=== PATIENT | female | born 1960 | race Caucasian/White ===

== ENCOUNTER 2021-02-19 04:07 | Inpatient (IN) | payer OTHER ==
[2021-02-19] MEDS ORDERED: Aspirin Chewable 81 MG TAB ONE (04:48)
[2021-02-19] MEDS ORDERED: Ondansetron PF 4 MG/2 ML Vial IVP PRN (06:15)
[2021-02-19] MEDS ORDERED: Acetaminophen 325 MG TAB PO PRN (06:15)
[2021-02-19] MEDS ORDERED: Ondansetron ODT 4 MG TAB SL PRN (06:15)
[2021-02-19 06:45] VITALS: BMI 28.9
[2021-02-19] MEDS ORDERED: Labetalol HCl 100 MG/20 ML VIAL SLOW IVP PRN (08:36)
[2021-02-19] MEDS ORDERED: hydrALAZINE 20 MG/ML VIAL SLOW IVP PRN (08:36)
[2021-02-19 09:29] LABS: Hemoglobin 10.1 g/dL (12.0-16.0); Mean Corpuscular HGB CONC 34.6 g/dL (32.0-36.0); Mean Corpuscular Hemoglobin 32.5 pg (27.0-31.0); RBC Distribution Width 16.8 % (11.5-14.5)
[2021-02-19 09:42] LABS: Hemoglobin A1c 5.5 % (4.0-6.0)
[2021-02-19 09:47] LABS: ALT (SGPT) 30 U/L (8-55); AST (SGOT) 36 U/L (5-34); Albumin 3.3 g/dL (3.5-5.0); Alkaline Phosphatase 113 U/L (40-110); Anion Gap 12 mmol/L (10-20); BUN (Urea Nitrogen) 8 mg/dL (9.8-20.1); Bilirubin, Total 0.8 mg/dL (0.2-1.2); Calc. Creatinine Clearance 135 mL/min (70-130); Calcium 8.6 mg/dL (7.8-10.44); Carbon Dioxide 27 mmol/L (22-29); Chloride 100 mmol/L (98-107); Globulin 2.9 g/dL (2.4-3.5); Glucose 142 mg/dL (70-105); Potassium 4.1 mmol/L (3.5-5.1); Protein, Total 6.2 g/dL (6.0-8.3); Sodium 135 mmol/L (136-145)
[2021-02-19 09:52] LABS: #Lymphocytes 1.1 thou/uL (1.20-3.40); #Neutrophils 7.8 thou/uL (1.40-6.50); %Basophils 0.1 % (0.0-1.0); %Eosinophils 0.2 % (0.0-10.0); %Lymphocytes 12.6 % (21.0-51.0); %Monocytes 0.4 % (0.0-10.0); %Neutrophils 86.7 % (42.0-75.0); Mean Platelet Volume 8.1 fL (7.4-10.4); Platelet Count 55 thou/uL (130-400); Platelet Morphology Comment Appears Decreased; RBC Morphology Normal
[2021-02-19] MEDS: Aspirin 325 mg Enteric Coated Tablet PO SCH (10:40)
[2021-02-19] MEDS: Nicotine 14 MG PATCH TD SCH (10:44)
[2021-02-19] MEDS ORDERED: HYDROMORPHONE HCL 8 MG PO PRN (16:54)
[2021-02-19] MEDS: HYDROmorphone 2 MG TAB PO PRN (19:10)
[2021-02-19] MEDS ORDERED: Atorvastatin Calcium 40 MG TAB PO SCH (21:00)
[2021-02-20 05:03] LABS: #Lymphocytes 1.4 thou/uL (1.20-3.40); #Neutrophils 3.3 thou/uL (1.40-6.50); %Basophils 0.1 % (0.0-1.0); %Eosinophils 0.7 % (0.0-10.0); %Lymphocytes 29.9 % (21.0-51.0); %Monocytes 0.7 % (0.0-10.0); %Neutrophils 68.6 % (42.0-75.0); Hemoglobin 9.3 g/dL (12.0-16.0); Mean Corpuscular HGB CONC 32.5 g/dL (32.0-36.0); Mean Corpuscular Hemoglobin 30.7 pg (27.0-31.0); Mean Corpuscular Volume 94.4 fL (78.0-98.0); Mean Platelet Volume 8.2 fL (7.4-10.4); Platelet Count 69 thou/uL (130-400); RBC Distribution Width 16.7 % (11.5-14.5); Red Blood Cell (RBC) Count 3.04 mill/uL (4.20-5.40); White Blood Cell (WBC) Count 4.8 thou/uL (4.8-10.8)
[2021-02-20 05:27] LABS: Anion Gap 10 mmol/L (10-20); BUN (Urea Nitrogen) 7 mg/dL (9.8-20.1); Calc. Creatinine Clearance 146 mL/min (70-130); Calcium 8.7 mg/dL (7.8-10.44); Carbon Dioxide 27 mmol/L (22-29); Cardiac Risk 4.8 (Less than 4.5); Chloride 102 mmol/L (98-107); Cholesterol 206 mg/dl (< 200 Desired); Glucose 97 mg/dL (70-105); HDL Cholesterol 43 mg/dL (>60 Neg Risk); LDL Cholesterol, Calculated 143 mg/dL; Sodium 135 mmol/L (136-145); Triglycerides 102 mg/dL (Less than 150)
[2021-02-20] MEDS: Nicotine 14 MG PATCH TD SCH (08:09)
[2021-02-20] MEDS: HYDROmorphone 2 MG TAB PO PRN ×3 (08:09→22:10)
[2021-02-20] MEDS: Aspirin 325 mg Enteric Coated Tablet PO SCH (08:09)
[2021-02-20] MEDS ORDERED: Atorvastatin Calcium 40 MG TAB PO SCH (21:00)
[2021-02-21] MEDS: Ondansetron PF 4 MG/2 ML Vial IVP PRN ×3 (01:03→14:33)
[2021-02-21] MEDS: HYDROmorphone 2 MG TAB PO PRN ×3 (04:07→20:40)
[2021-02-21] MEDS: Levothyroxine 150 MCG TAB PO SCH (05:34)
[2021-02-21 05:50] LABS: Hemoglobin 9.5 g/dL (12.0-16.0); Mean Corpuscular HGB CONC 34.3 g/dL (32.0-36.0); Mean Corpuscular Hemoglobin 32.1 pg (27.0-31.0); Mean Corpuscular Volume 93.4 fL (78.0-98.0); Platelet Count 54 thou/uL (130-400); RBC Distribution Width 16.3 % (11.5-14.5); Red Blood Cell (RBC) Count 2.96 mill/uL (4.20-5.40)
[2021-02-21 06:07] LABS: Anion Gap 10 mmol/L (10-20); BUN (Urea Nitrogen) 6 mg/dL (9.8-20.1); Calc. Creatinine Clearance 153 mL/min (70-130); Calcium 8.4 mg/dL (7.8-10.44); Carbon Dioxide 25 mmol/L (22-29); Chloride 102 mmol/L (98-107); Glucose 114 mg/dL (70-105); Potassium 3.7 mmol/L (3.5-5.1); Sodium 133 mmol/L (136-145)
[2021-02-21 06:10] LABS: Lymphocytes 31 % (21-51); MDiff Complete? YES; Monocytes 1 % (0-10); Neutrophil 68 % (42-75); Platelet Morphology Comment Appears Decreased
[2021-02-21] MEDS: Nicotine 21 MG PATCH TOP SCH (10:20)
[2021-02-21] MEDS: DULoxetine 60 MG CAP PO SCH (10:21)
[2021-02-21] MEDS: Aspirin 325 mg Enteric Coated Tablet PO SCH (10:21)
[2021-02-21] MEDS: Losartan 25 MG TAB PO SCH (10:21)
[2021-02-22] MEDS: Ondansetron PF 4 MG/2 ML Vial IVP PRN ×2 (00:53→15:53)
[2021-02-22] MEDS: Levothyroxine 150 MCG TAB PO SCH (06:09)
[2021-02-22] MEDS: HYDROmorphone 2 MG TAB PO PRN ×3 (06:16→22:49)
[2021-02-22] MEDS: Losartan 25 MG TAB PO SCH (09:28)
[2021-02-22] MEDS: Aspirin 325 mg Enteric Coated Tablet PO SCH (09:28)
[2021-02-22] MEDS: DULoxetine 60 MG CAP PO SCH (09:28)
[2021-02-22] MEDS: Nicotine 21 MG PATCH TOP SCH (09:29)
[2021-02-22] MEDS ORDERED: Amlodipine 5 MG TAB PO SCH (13:15)
[2021-02-22] MEDS: Melatonin 3 MG TAB PO PRN (22:38)
[2021-02-23] MEDS: Levothyroxine 150 MCG TAB PO SCH (05:42)
[2021-02-23] MEDS ORDERED: Amlodipine 5 MG TAB PO SCH (09:00)
[2021-02-23] MEDS: DULoxetine 60 MG CAP PO SCH (09:58)
[2021-02-23] MEDS: Aspirin 325 mg Enteric Coated Tablet PO SCH (09:58)
[2021-02-23] MEDS: Nicotine 21 MG PATCH TOP SCH (10:03)
[2021-02-23] MEDS: HYDROmorphone 2 MG TAB PO PRN ×2 (10:14→16:52)
[2021-02-23] MEDS: Ondansetron PF 4 MG/2 ML Vial IVP PRN (10:15)
[2021-02-23] MEDS: Losartan 25 MG TAB PO SCH (10:33)
[2021-02-23] MEDS: Melatonin 3 MG TAB PO PRN (21:08)
[2021-02-24] MEDS: HYDROmorphone 2 MG TAB PO PRN ×3 (04:07→21:26)
[2021-02-24] MEDS: Levothyroxine 150 MCG TAB PO SCH (05:45)
[2021-02-24] MEDS: Nicotine 21 MG PATCH TOP SCH (09:14)
[2021-02-24] MEDS: Aspirin 325 mg Enteric Coated Tablet PO SCH (09:14)
[2021-02-24] MEDS: DULoxetine 60 MG CAP PO SCH (09:14)
[2021-02-24] MEDS: Clindamycin 150 MG CAP PO SCH ×2 (14:49→20:03)
[2021-02-24] MEDS: Lactinex Tablet PO SCH ×2 (14:49→20:03)
[2021-02-24] MEDS: Melatonin 3 MG TAB PO PRN (21:26)
[2021-02-25] MEDS: Clindamycin 150 MG CAP PO SCH ×3 (02:07→14:11)
[2021-02-25] MEDS: Levothyroxine 150 MCG TAB PO SCH (05:30)
[2021-02-25] MEDS: Aspirin 325 mg Enteric Coated Tablet PO SCH (08:12)
[2021-02-25] MEDS: Lactinex Tablet PO SCH ×2 (08:12→14:11)
[2021-02-25] MEDS: Nicotine 21 MG PATCH TOP SCH (08:13)
[2021-02-25] MEDS: DULoxetine 60 MG CAP PO SCH (08:13)
[2021-02-25 11:54] VITALS: BP 164/68; TEMP 97.9
== END 2021-02-25 15:39 | DRG 65 ==
LOC: ERS 04:07 → 2SE 05:14
PROVIDERS: ADMIT Student in an Organized Health Care Education/Training Program; ATTEND Internal Medicine
DX: I63.81 Other cerebral infarction due to occlusion or stenosis of small artery (principal); G81.94 Hemiplegia, unspecified affecting left nondominant side; C25.9 Malignant neoplasm of pancreas, unspecified; C22.8 Malignant neoplasm of liver, primary, unspecified as to type; L03.113 Cellulitis of right upper limb; Z66 Do not resuscitate; Z20.822 Contact with and (suspected) exposure to COVID-19; B18.2 Chronic viral hepatitis C; R29.810 Facial weakness; D64.9 Anemia, unspecified; F32.9 Major depressive disorder, single episode, unspecified; I10 Essential (primary) hypertension; E78.5 Hyperlipidemia, unspecified; R27.8 Other lack of coordination; R29.704 NIHSS score 4; G93.89 Other specified disorders of brain; F17.210 Nicotine dependence, cigarettes, uncomplicated; Z90.49 Acquired absence of other specified parts of digestive tract; Z98.51 Tubal ligation status
CPT/HCPCS: 36415; 70551; 80048; 80053; 80061; 83036; 84439; 84443; 84484; 85025; 93005; 93306; 93880; 95712; 95819; 95957; J2405; Q0162